=== PATIENT | female | born 1980 | race Two or more races ===

== ENCOUNTER 2023-02-24 08:19 | Emergency (ER) | payer OTHER ==
[~2023-02-24] VITALS: Ht 170.2 cm; Wt 112.5 kg
[2023-02-24 09:38] LABS: HEMATOCRIT 24.4 % (36.0-45.00); MEAN CORPUSCULAR HGB CONC 30.8 g/dl (32.0-36.0); PLATELET COUNT 305 K/uL (150-450); RED BLOOD COUNT 3.82 M/uL (4.00-6.00); RED CELL DISTRIBUTION WIDTH 21.8 % (11.5-14.5)
[2023-02-24 09:48] LABS: MEAN CELL VOLUME 63.8 fL (80.00-100.00); MEAN CORPUSCULAR HEMOGLOBIN 19.6 pg (27.00-32.0)
[2023-02-24 09:49] LABS: HEMOGLOBIN 7.5 g/dL (12.0-15.00)
[2023-02-24 10:59] LABS: ALBUMIN 3.2 gm/dL (3.4-5.0); BILIRUBIN TOTAL 0.21 mg/dL (0.3-1.2); CALCIUM 8.3 mg/dL (8.5-10.1); CREATININE SERUM 0.59 mg/dL (0.55-1.02); GFR 111.24; GLOBULINA 3.8 G/DL (2.4-3.5); POTASSIUM 3.12 mEq/L (3.5-5.1)
== END 2023-02-24 15:02 | disposition home or self-care (01) ==
LOC: ER 08:19
PROVIDERS: General Practice
DX: N93.8 Other specified abnormal uterine and vaginal bleeding (principal)